=== PATIENT | female | born 1965 | race Caucasian/White ===

== ENCOUNTER → 2023-12-20 | Outpatient (CLI) | payer BC ==
--- NOTE | 2023-12-24 08:09 | MM ---
Reason for Exam: Screening (asymptomatic). Last mammogram was performed 8 year(s) and 6 month(s) ago. Patient History: Menarche at age 14. First Full-Term at age 32. Late child-bearing (after 32). Patient used Hormonal Contraceptives for 1 year. Maternal grandmother had breast cancer, age 7. Risk Values: Nasrin 5 year model risk: 1.7%. NCI Lifetime model risk: 10.9%. Prior Study Comparison: 06/04/2015 Bilateral Screening Mammogram, [facility]. 06/11/2015 Right Diagnostic Mammogram, [facility]. Tissue Density: There are scattered areas of fibroglandular density. Findings: Analyzed By CAD. The pattern is symmetrical. There is. Rounded densities within the upper outer mid left breast present previously. A few new benign-appearing calcifications at this region. Focal asymmetry within the posterior left breast is stable. No suspicious groups of microcalcifications, spiculated or lobular masses, architectural distortion or other secondary signs of malignancy are mammographically apparent. Overall Assessment: Benign, BI-RAD 2 Management: Screening Mammogram of both breasts in 1 year. A negative mammogram report should not preclude additional follow up of suspicious palpable abnormalities. Patient should continue monthly self breast exam. A clinical breast exam by your physician is recommended on an annual basis and results should be correlated with mammographic findings. Note on Nasrin scores and lifetime risk: 1. A Nasrin score greater than 3% is considered moderate risk. If this is the case, consider specialist referral to assess eligibility for a risk reducing agent. 2. If overall lifetime risk for the development of breast cancer is 20% or higher, the patient may qualify for future screening with alternating mammogram and breast MRI. [facility], , 12/24/2023 8:06 AM. Electronically signed and approved by: Ralph Powell D.O. Radiologis
== END | disposition home or self-care (01) ==
LOC: RADMAMWWP 16:06
PROVIDERS: ATTEND Family Medicine
CPT/HCPCS: 77063; 77067